=== PATIENT | female | born 1970 | race Caucasian/White ===

== ENCOUNTER 2019-02-02 06:15 | Inpatient (IN) ==
--- NOTE | 2019-01-18 16:30 | PAT Medication Instructions ---
Medication Instructions Date of Service January 18, 2019 Home Medications amitriptyline 100 mg PO HS aspirin 81 mg PO QAM baclofen 10 mg PO BID buspirone 10 mg PO TID diclofenac sodium 75 mg PO QAM folic acid 0.8 mg PO QAM gabapentin 100 mg PO TID levothyroxine 50 mcg PO QAM qabqjzletrpa-don-wurw-FA-vit K 1 tab-cap PO QAM omeprazole 40 mg PO BID venlafaxine [Effexor XR] 150 mg PO QAM ASK your surgeon for instructions aspirin 81 mg PO QAM diclofenac sodium 75 mg PO QAM DO NOT take the morning of surgery baclofen 10 mg PO BID folic acid 0.8 mg PO QAM fmcptxflrhzr-faj-iwov-FA-vit K 1 tab-cap PO QAM Take morning of surgery With a small sip of water, OTHERWISE NOTHING TO EAT OR DRINK AFTER MIDNIGHT: buspirone 10 mg PO TID gabapentin 100 mg PO TID levothyroxine 50 mcg PO QAM omeprazole 40 mg PO BID venlafaxine [Effexor XR] 150 mg PO QAM Take evening before surgery amitriptyline 100 mg PO HS baclofen 10 mg PO BID buspirone 10 mg PO TID gabapentin 100 mg PO TID omeprazole 40 mg PO BID Other Notes If you have any questions please call us at [phone] or [phone] or [phone] or [phone]
--- NOTE | 2019-01-19 10:44 | Anesthesiology Consultation ---
Date of Service January 19, 2019 Assessment & Plan (1) Encounter for pre-operative examination: - Neuro: 01/06/19: Hx empty sella syndrome/headaches. "MRI of the pituitary was o.k. There was no tumor." Prescribed neurontin for neuropathy. Chart Review Chart Review: Acceptable Risk for Surgery and Patient seen in Pre Admission Testing Teaching & Discussion Pre-Anesthesia Teaching/Discussion Notes: Instructed NPO after midnight before surgery,except medications with 15 cc of water. Medication instructions provided according to the PAT guidelines. History Surgery Operation Date: 02/02/19 07:30 Proposed Procedures p Left Laparoscopic Robotic Assisted Partial Nephrectomy - Grayson Villela MD Height/Weight Height: 5 ft 2 in Weight: 106 kg Allergies Allergy/AdvReac Type Severity Reaction Status Date / Time Penicillins Allergy Unknown Rash Verified 01/13/19 08:52 Medications Home Medications Medication Instructions Recorded Confirmed Last Taken amitriptyline 100 mg PO HS 01/13/19 01/13/19 Unknown aspirin 81 mg PO QAM 01/13/19 01/13/19 Unknown baclofen 10 mg PO BID 01/13/19 01/13/19 Unknown buspirone 10 mg PO TID 01/13/19 01/13/19 Unknown diclofenac sodium 75 mg PO QAM 01/13/19 01/13/19 Unknown folic acid 0.8 mg PO QAM 01/13/19 01/13/19 Unknown gabapentin 100 mg PO TID 01/13/19 01/13/19 Unknown levothyroxine 50 mcg PO QAM 01/13/19 01/13/19 Unknown cafphnowcrgl-bsq-sglu-FA-vit K 1 tab-cap PO QAM 01/13/19 01/13/19 Unknown [Multi For Her] omeprazole 40 mg PO BID 01/13/19 01/13/19 Unknown venlafaxine [Effexor XR] 150 mg PO QAM 01/13/19 01/13/19 Unknown Past Medical History Medical History Anxiety Cancer RENAL CELL - CURRENT ISSUE Chronic headaches HX EMPTY SELLA SYNDROME; FOLLOWS WITH NEURO Depression GERD (gastroesophageal reflux disease) OCCASIONAL Hypertension Hypothyroidism IBS (irritable bowel syndrome) Morbid obesity Neuropathy LOWER EXTREMITIES Osteoarthritis Pre-diabetes Sleeping difficulties POST-OP HYSTER, PATIENT STATES A NURSE TOLD HER SHE HAD APNEIC EVENTS DURING SLEEPING; NO SLEEP STUDY Exercise / Class Metabolic Activity II 4-5 Yardwork/Stairs/Walk up hill Past Family History Family History Father Family history of diabetes mellitus Past Surgical History Surgical History History of colonoscopy History of hysterectomy Hx of foot surgery B/L TARSAL TUNNEL Past Anesthesia History No Hx of Anesthesia Complications and No Family Hx of Anesthesia Complications History of PONV No Hx of PONV and No Hx of Motion Sickness Social History Smoking Status: Former smoker Do You Dip or Chew Tobacco: No Smoking End Date: QUIT 30 YEARS AGO Hx Alcohol Use: No Hx Substance Use: No Review of Systems Occasional reflux. Patient denies chest pain, shortness of breath, dyspnea on exertion, cough, wheezing, palpitations. Physical Exam Vital Signs VITALS BP 117/85 P 85 TEMP 98.9 SP02 96%RA RESP 18 PHYSICAL Full neck and c-spine range of motion. Full TMJ range of motion. TMD 4 finger breaths Mallampati Score 2 Dentition: missing side, loose lower front tooth per patient* Lungs: clear throughout to auscultation Cardiac: regular rate and rhythm, no murmurs noted Spine: normal Carotid arteries: negative bruit Extremities: no edema Short neck Testing Electrocardiogram Date: 01/19/19 Findings: + NSR @ (74) Chest X-Ray Date: 01/19/19 Findings: + NAD Stress Test Date: 01/19/18 Type: exercise "Normal" exercise ECHO/stress EKG at 7.0 METS. 89% MPHR. Occasional PAC's. LVEF 63%. Mild TR. Laboratory Results 01/19/19 10:55 01/19/19 10:55 Blood Type O Positive 01/19/19 10:55 Antibody Screen NEGATIVE 01/19/19 10:55 Urine Color Yellow 01/19/19 10:55 Urine Appearance Clear (Clear) 01/19/19 10:55 Urine pH 5.0 (4.5-7.5) 01/19/19 10:55 Ur Specific [place] 1.022 (1.000-1.030) 01/19/19 10:55 Urine Protein Negative (Negative) 01/19/19 10:55 Urine Glucose (UA) Negative (Negative) 01/19/19 10:55 Urine Ketones Negative (Negative) 01/19/19 10:55 Urine Nitrite Negative (Negative) 01/19/19 10:55 Ur Leukocyte Esterase Negative (Negative) 01/19/19 10:55
--- NOTE | 2019-01-19 11:20 | XRay Report ---
XR chest Pre-admission PA/Lat CLINICAL HISTORY: Preoperative chest COMPARISON STUDY: No previous studies for comparison. FINDINGS: The cardiac and mediastinal contours are normal. There is no evidence of focal pulmonary co nsolidation. There is no evidence of failure. No pleural effusions are visualized.[ IMPRESSION: No active disease in the chest. Electronically signed by: Stevan Lopez M.D. 01/19/2019 11:19 AM
[2019-01-19 13:29] LABS: Appearance Urine Clear (Clear); Bilirubin Urine Negative (Negative); Blood Urine Negative (Negative); Color Urine Yellow; Glucose Urine UA Negative (Negative); Ketones Urine Negative (Negative); Leukocyte Esterase Urine Negative (Negative); Nitrite Urine Negative (Negative); Protein Urine Negative (Negative); Specific Gravity Urine 1.022 (1.000-1.030); Urobilinogen Urine Negative (Negative)
[2019-01-19 13:30] LABS: BUN Creatinine Ratio 19.7 (10-20); Calcium 8.9 mg/dl (8.5-10.1); Creatinine Clr Calc Pharmacy 81.9 ml/min; Est GFR (African American) 81.5; Est GFR (Non-African American) 70.3; Potassium 4.5 mmol/L (3.5-5.1)
[2019-01-19 14:16] LABS: Basophils % (auto) 0.3 %; Eosinophils % (auto) 1.6 %; Hemoglobin 14.5 g/dL (12.0-16.0); Immature Granulocytes % (auto) 0.3 %; Lymphocytes # (auto) 1.97 K/uL (1.2-3.4); Lymphocytes % (auto) 32.2 %; Mean Corpuscular Hgb Conc 33.7 g/dL (32-36); Mean Corpuscular Volume 90.3 fL (80-100); Mean Platelet Volume 10.7 fL (7.4-10.4); Monocytes % (auto) 9.5 %; Neutrophils # (auto) 3.42 K/uL (1.4-6.5); Neutrophils % (auto) 56.1 %; Platelet Count 237 K/uL (130-400); RDW Coefficient of Variation 12.9 % (11.5-14.5); RDW Standard Deviation 42.5 fL (36.4-46.3); Red Blood Count 4.76 M/uL (4.2-5.4); White Blood Count 6.11 K/uL (4.8-10.8)
[2019-01-19 14:17] LABS: Basophils # (auto) 0.02 K/uL (0-0.2); Immature Granulocytes # (auto) 0.02 K/uL (0.00-0.02); Monocytes # (auto) 0.58 K/uL (0.11-0.59)
[~2019-02-02 06:15] MED LIST: CEFAZOLIN 2000MG 2,000 MG/15 ML SYR IV SCH; LR 15ML/HR IV SCH
[2019-02-02] MEDS ORDERED: BUPIVACAINE 0.5 % 5 MG/1 ML MPF 30ML VIAL ONE (06:59)
[2019-02-02] MEDS ORDERED: GELATIN SPONGE SZ 100 ONE (06:59)
[2019-02-02] MEDS ORDERED: MANNITOL 25% 12.5 GM/50 ML VIAL IV ONE ×2 (06:59→07:16)
[2019-02-02] MEDS ORDERED: LIDOCAINE HCL 2% 2 ML VIAL/AMP(20MG/ML) INFIL ONE (07:09)
[2019-02-02] MEDS ORDERED: ROCURONIUM BROMIDE 10 MG/ML 5 ML VIAL ONE ×2 (07:09→09:22)
[2019-02-02] MEDS ORDERED: MIDAZOLAM HCL 1 MG/ML 2ML VIAL ONE (07:09)
[2019-02-02] MEDS ORDERED: PROPOFOL IV EMULSION 10 MG/ML 20 ML VIAL IV ONE (07:09)
[2019-02-02] MEDS ORDERED: fentaNYL citrate 100 MCG/2 ML VIAL ONE ×3 (07:10→09:22)
[2019-02-02] MEDS ORDERED: ACETAMINOPHEN 1000 MG/100 ML IV IV ONE (07:16)
[2019-02-02] MEDS ORDERED: fentaNYL citrate 100 MCG/2 ML VIAL IV PRN (07:20)
[2019-02-02] MEDS ORDERED: ONDANSETRON INJ 2 MG/ML 2 ML VIAL IV PRN ×2 (07:20→12:32)
[2019-02-02] MEDS ORDERED: DEXAMETHASONE SOD INJ 4 MG/ML VIAL IV PRN (07:20)
[2019-02-02] MEDS ORDERED: HYDROmorphone INJ 2 MG/ML SYR/VIAL IV PRN (07:20)
[2019-02-02] MEDS ORDERED: ATROPINE SULFATE 0.1 MG/ML 10ML SYR IV PRN (07:20)
[2019-02-02] MEDS ORDERED: ePHEDrine sulfate 50 MG/ML AMP IV PRN (07:20)
--- NOTE | 2019-02-02 07:20 | History & Physical Bridge Note ---
Date of Service February 02, 2019 History & Physical Bridge Note I have examined the patient, reviewed the History & Physical and in the interval since the performance of the History & Physical I have noted the following changes of clinical significance: no changes noted
[2019-02-02] MEDS ORDERED: CLINDAMYCIN 600 MG/54 ML D5W IV ONE (07:24)
[2019-02-02] MEDS ORDERED: CLINDAMYCIN 600 MG/54 ML BAG IV SCH (07:45)
[2019-02-02] MEDS ORDERED: HYDROmorphone INJ 2 MG/ML SYR/VIAL ONE (08:46)
[2019-02-02] MEDS ORDERED: ONDANSETRON INJ 2 MG/ML 2 ML VIAL ONE ×2 (09:22→11:11)
[2019-02-02] MEDS ORDERED: DEXAMETHASONE SOD INJ 4 MG/ML VIAL ONE (09:22)
[2019-02-02] MEDS ORDERED: PHENYLEPHRINE 100MCG/ML 5ML SYR ONE (09:22)
[2019-02-02] MEDS ORDERED: TISSEEL FIBRIN SEALANT 10ML TOP ONE (09:30)
[2019-02-02] MEDS ORDERED: SURGICEL ABSORB HEMOSTAT 2IN X 14IN TOP ONE (09:30)
[2019-02-02] MEDS ORDERED: GLYCOPYRROLATE 0.2 MG/ML VIAL ONE (10:24)
[2019-02-02] MEDS ORDERED: NEOSTIGMINE METHYLSULFATE 5 MG/5 ML SYR ONE (10:24)
[2019-02-02] MEDS ORDERED: MANNITOL 25% 12.5 GM/50 ML VIAL IV STA (10:25)
--- NOTE | 2019-02-02 10:56 | Post Operative Brief Note ---
Immediate Post Op Note v1 Date of Surgery February 02, 2019 Pre & Post Diagnosis Operation Date: 02/02/19 07:30 Pre-Op Diagnosis: Left Renal Mass Post-Op Diagnosis: Left Renal Mass Procedure Operation Date: 02/02/19 07:30 Actual Procedures p Robotic Assisted Left Laparoscopic Partial Nephrectomy(Left) - Grayson Villela MD Surgeon Rasta Villela MD Hoop Punch Operator Helper Jorge Grover MD; LETICIA Newby Estimated Blood Loss 50 Findings Consistent with Post-Op Diagnosis Drains Alexis Catheter and Jose-Figueroa Drain
[2019-02-02 11:19] LABS: Basophils # (auto) 0.03 K/uL (0-0.2); Basophils % (auto) 0.3 %; Eosinophils # (auto) 0.05 K/uL (0-0.5); Eosinophils % (auto) 0.5 %; Hematocrit (blood only) 42.7 % (37-47); Hemoglobin 14.2 g/dL (12.0-16.0); Immature Granulocytes # (auto) 0.03 K/uL (0.00-0.02); Immature Granulocytes % (auto) 0.3 %; Lymphocytes # (auto) 2.04 K/uL (1.2-3.4); Mean Corpuscular Volume 91.6 fL (80-100); Mean Platelet Volume 9.8 fL (7.4-10.4); Monocytes # (auto) 0.24 K/uL (0.11-0.59); Monocytes % (auto) 2.5 %; Neutrophils # (auto) 7.33 K/uL (1.4-6.5); Neutrophils % (auto) 75.4 %; Platelet Count 231 K/uL (130-400); RDW Coefficient of Variation 12.9 % (11.5-14.5); Red Blood Count 4.66 M/uL (4.2-5.4); White Blood Count 9.72 K/uL (4.8-10.8)
[2019-02-02 11:38] LABS: BUN Creatinine Ratio 12.4 (10-20); Calcium 7.9 mg/dl (8.5-10.1); Creatinine Clr Calc Pharmacy 80.9 ml/min; Est GFR (African American) 79.5; Est GFR (Non-African American) 68.6; Potassium 4.3 mmol/L (3.5-5.1)
[2019-02-02 11:41] LABS: Mean Corpuscular Hgb Conc 33.3 g/dL (32-36)
--- NOTE | 2019-02-02 11:59 | Anesthesiology Progress Note ---
Date of Service February 02, 2019 Anesthesia Post Procedure Vital Signs Vital Signs: Temp Pulse Pulse Pulse Resp BP BP 02/02/19 11:40 98 H 14 02/02/19 11:36 36.4 C L 91 H 15 108/76 02/02/19 11:35 96 H 14 02/02/19 11:30 92 H 14 126/88 02/02/19 11:25 100 H 12 110/80 02/02/19 11:23 98 H 14 106/86 02/02/19 11:21 98 H 14 02/02/19 11:20 92 H 15 02/02/19 11:16 94 H 13 130/78 02/02/19 11:15 99 H 12 02/02/19 11:11 104 H 16 120/88 02/02/19 11:10 96 H 14 02/02/19 11:05 95 H 18 02/02/19 11:00 92 H 15 134/89 02/02/19 10:56 93 H 14 105/80 02/02/19 10:55 92 H 16 02/02/19 10:52 36.6 C 94 H 94 H 12 100/79 100/79 02/02/19 06:51 37.2 C 84 20 126/87 Pulse Ox 02/02/19 11:40 100 02/02/19 11:36 98 02/02/19 11:35 99 02/02/19 11:30 100 02/02/19 11:25 02/02/19 11:23 95 02/02/19 11:21 95 02/02/19 11:20 94 02/02/19 11:16 93 02/02/19 11:15 95 02/02/19 11:11 95 02/02/19 11:10 97 02/02/19 11:05 96 02/02/19 11:00 98 02/02/19 10:56 97 02/02/19 10:55 97 02/02/19 10:52 97 02/02/19 06:51 98 Pain Intensity Bilateral Leg: Pain Intensity: 6 Left Abdomen: Pain Intensity: 4 Transfer of Care Handoff Completed per policy Notes Mental Status: alert / awake / arousable and participated in evaluation Patient Amnestic to Procedure: Yes Nausea / Vomiting: adequately controlled Pain: adequately controlled Airway Patency, RR, SpO2: stable & adequate BP & HR: stable & adequate Hydration State: stable & adequate Anesthetic Complications: no major complications apparent
--- NOTE | 2019-02-02 12:10 | Operative Report ---
Post Operative Report Pre & Post Diagnosis Operation Date: 02/02/19 07:30 Pre-Op Diagnosis: Left Renal Mass Post-Op Diagnosis: Left Renal Mass Procedure Operation Date: 02/02/19 07:30 Actual Procedures p Robotic Assisted Left Laparoscopic Partial Nephrectomy(Left) - Grayson Villela MD Surgeon Rasta Villela MD Still Runner Jorge Grover MD; LETICIA Newby Estimated Blood Loss 50 Findings See Below (8 min warm ischemia time) Specimens left renal mass Description of Procedure Patient was identified in the preoperative holding area, appropriate informed consents reviewed and completed and the patient was transported to the operating suite. Upon arrival she received appropriate preoperative antibiotics in the form of clindamycin. Adequate general anesthesia was achieved she was placed in a [id number] left side up lateral decubitus position with the bed flexed. Following sterile prep and drape I passed a Veress needle into the left upper quadrant and insufflated the abdomen to 15 mmHg. I then marked my anticipated incisions for standard robotic assisted laparoscopic left partial nephrectomy. I inserted a 12 mm Visiport with 10 mm 0 degree lens, and confirm that there is no evidence of varus trauma. I then inspected my other port locations before placing each sequentially under direct vision. Of note, she had some inflammation of the left colon with adhesions. I was able to sharply incised adhesions and mobilized the colon. I then incised the white line of Toldt and medialize the colon however [id number] exposing the underlying kidney with Gerota's fascia intact. At the inferior pole of the kidney identified the gonadal vein and created a window medial to the gonadal vein onto the psoas muscle. I elevated this as I continued to dissect off the anterior surface of the gonadal vein towards the inferior pole of the kidney and ultimately the inferior aspect of the renal vein. Unfortunately I encountered a small branch that started to bleed and I elected to clip the branch as well as the gonadal vein. After can obtain an control I created a new window just lateral to the gonadal vein preserving the ureter with the remaining aspects of Gerota's fascia. I utilize this window to elevate the kidney further and put the hilum on stretch. At this point I encountered the lower aspect of the renal vein and I cleared first anterior surface, identifying the adrenal vein. I then dissected an area just lateral to the gonadal and adrenal inferior and superior to the vein as well as grading a posterior plane to completely surround the vein. A single artery was identified immediately posterior to the vein and this was skeletonized. At that time I turned my attention away from the renal hilum and moved towards the kidney itself. I incised Gerota's fascia in the midportion of the anterior surface of the kidney. I got onto the capsule of the kidney and the other skeletonized the capsule until I encountered a visible defect and protrusion consistent with the mass seen on prior imaging. After circumferentially exposing capsule around the perimeter of this mass, I performed a laparoscopic ultrasonographic evaluation confirming that this was in fact the mass. I marked my plans incision site on the renal capsule and preplaced to V lock sutures into the abdomen as well as a single Vicryl suture. We then administered 12.5 g of mannitol before clamping the renal artery with a short straight followed by a short curved bulldog clamp. I placed a short straight bulldog clamp across the renal vein as well before turning towards excision of the mass. There was excellent clamping, no active bleeding during the resection, and I was able to sharply incise the remaining aspects of the capsule and remove the tumor en bloc without any visible violations. There was no intrusion upon major vasculature nor the renal collecting system. I was able to again reapproximation of the defect utilizing my previously placed V lock sutures and a sliding clip technique. A single suture was utilized to cross the defect 3 times before unclamping the kidney. Warm ischemia time was 8 minutes. There was good hemostasis after unclamping the kidney. I did place an additional single pass V lock suture to better reapproximate the capsule of the kidney. I then placed FloSeal across the defect and covered it with a small sheet of Surgicel. We draped Tisseel over the top to create a new pseudocapsule. I reapproximated Gerota's fascia utilizing the remaining aspect of the V lock suture. I then collected the specimen in an Endo Catch bag placed through the lowest assistant unit forester port. A Husam drain was guided through her right robotic arm and placed into the retro- peritoneal gutter. We then undocked the robot and I withdrew the specimen. I closed the fascia with a 0 Vicryl followed by reapproximation of Katheryn's fascia and the location of the 12 mm ports. All incisions were infiltrated with half percent Marcaine for closure with 4-0 Monocryl. The drain was sutured in place with a 2-0 nylon. Dermabond was placed across all incisions and the case concluded. There were no complications, patient tolerated the procedure extremely well. Jorge Grover assisted me throughout the case as did Verónica Walden. I attest to the content of the Intraoperative Record and any orders documented therein. Any exceptions are noted below.
[2019-02-02] MEDS ORDERED: MoRPHine SULFATE 2 MG/ML CARP IV PRN (12:32)
[2019-02-02] MEDS ORDERED: ACETAMINOPHEN W/CODEINE #3 1 TAB PO PRN (12:32)
[2019-02-02] MEDS ORDERED: BACLOFEN 10 MG TAB PO PRN (12:32)
[2019-02-02] MEDS: MoRPHine SULFATE 4 MG/ML 1 ML CARP\\VIAL IV PRN ×2 (12:50→23:45)
[2019-02-02 13:31] LABS: Partial Thromboplastin Ratio 0.9; Partial Thromboplastin Time 24.9 Seconds (21.0-31.0); Prothrombin Time 10.7 Seconds (9.0-12.0)
[2019-02-02] MEDS ORDERED: BUSPIRONE HCL 10 MG TAB PO SCH (14:00)
[2019-02-02] MEDS: LACTATED RINGER'S 1,000 ML IV SCH ×2 (14:06→22:32)
[2019-02-02] MEDS: CLINDAMYCIN 600 MG in DEXTROSE 5% 50 ML IV SCH ×2 (14:07→22:31)
[2019-02-02] MEDS: GABAPENTIN 100 MG CAP PO SCH ×2 (14:07→20:27)
[2019-02-02] MEDS: LEVOTHYROXINE SODIUM 50 MCG TABLET PO SCH (14:07)
[2019-02-02] MEDS: ACETAMINOPHEN W/CODEINE #3 1 TAB PO PRN (15:36)
[2019-02-02] MEDS: AMITRIPTYLINE HCL 100 MG TAB PO SCH (20:27)
[2019-02-02] MEDS: PANTOprazole 40 MG TAB PO SCH (20:28)
[2019-02-02] MEDS: HEPARIN SOD 5,000 UNIT/0.5 ML VIAL SQ SCH (20:35)
[2019-02-03] MEDS: LACTATED RINGER'S 1,000 ML IV SCH ×3 (05:35→20:20)
[2019-02-03] MEDS: ACETAMINOPHEN W/CODEINE #3 1 TAB PO PRN ×2 (05:35→15:07)
[2019-02-03] MEDS: LEVOTHYROXINE SODIUM 50 MCG TABLET PO SCH (05:35)
[2019-02-03 07:31] LABS: Basophils # (auto) 0.01 K/uL (0-0.2); Basophils % (auto) 0.1 %; Eosinophils # (auto) 0.01 K/uL (0-0.5); Eosinophils % (auto) 0.1 %; Hematocrit (blood only) 36.8 % (37-47); Hemoglobin 12.1 g/dL (12.0-16.0); Immature Granulocytes # (auto) 0.03 K/uL (0.00-0.02); Immature Granulocytes % (auto) 0.3 %; Lymphocytes # (auto) 1.56 K/uL (1.2-3.4); Lymphocytes % (auto) 17.3 %; Mean Corpuscular Hgb Conc 32.9 g/dL (32-36); Mean Corpuscular Volume 92.2 fL (80-100); Mean Platelet Volume 9.9 fL (7.4-10.4); Monocytes # (auto) 1.22 K/uL (0.11-0.59); Monocytes % (auto) 13.6 %; Neutrophils # (auto) 6.17 K/uL (1.4-6.5); Neutrophils % (auto) 68.6 %; Platelet Count 216 K/uL (130-400); RDW Coefficient of Variation 12.9 % (11.5-14.5); RDW Standard Deviation 43.7 fL (36.4-46.3); Red Blood Count 3.99 M/uL (4.2-5.4)
--- NOTE | 2019-02-03 07:54 | Urology Progress Note ---
Date of Service February 03, 2019 Assessment & Plan (1) Renal mass: pod #1 s/p L robo part nephrectomy - sanchez out - advance diet - ambulate - leave KATRINA for now Subjective progressing appropriately - out of bed - hungry - modest pain - clear urine, low KATRINA output Physical Exam Physical Exam: AFVSS NAD incisions appropriate Katrina serosang urine clear Results & Data Vital Signs (Past 12 Hours) Vital Signs Temp Pulse Pulse Resp BP Pulse Ox 02/03/19 02:51 36.9 C 90 17 95/65 L 95 02/02/19 23:47 87 100/64 02/02/19 22:51 37.0 C 90 16 88/63 L 93
[2019-02-03] MEDS: PANTOprazole 40 MG TAB PO SCH ×2 (07:57→20:22)
[2019-02-03] MEDS: CEROVITE ADV FORMULA TAB PO SCH (07:57)
[2019-02-03] MEDS: VENLAFAXINE HCL XR 150 MG CAPXR PO SCH (07:57)
[2019-02-03] MEDS: GABAPENTIN 100 MG CAP PO SCH ×3 (07:58→20:21)
[2019-02-03 08:14] LABS: BUN Creatinine Ratio 9.8 (10-20); Calcium 8.1 mg/dl (8.5-10.1); Creatinine Clr Calc Pharmacy 80.9 ml/min; Est GFR (African American) 79.5; Est GFR (Non-African American) 68.6
[2019-02-03] MEDS: HEPARIN SOD 5,000 UNIT/0.5 ML VIAL SQ SCH ×2 (08:46→20:24)
--- NOTE | 2019-02-03 08:59 | Anesthesiology Progress Note ---
Date of Service February 03, 2019 Anesthesia Post Procedure Vital Signs Vital Signs: Temp Pulse Pulse Pulse Resp BP BP 02/03/19 07:30 37.0 C 89 18 114/74 02/03/19 02:51 36.9 C 90 17 95/65 L 02/02/19 23:47 87 100/64 02/02/19 22:51 37.0 C 90 16 88/63 L 02/02/19 18:49 37.1 C 104 H 20 127/79 02/02/19 15:01 36.9 C 88 19 02/02/19 14:06 37.1 C 88 16 02/02/19 12:57 37.2 C 86 16 02/02/19 12:26 37 C 86 15 02/02/19 12:00 37 C 99 H 16 02/02/19 11:40 98 H 14 02/02/19 11:36 36.4 C L 91 H 15 108/76 02/02/19 11:35 96 H 14 02/02/19 11:30 92 H 14 126/88 02/02/19 11:25 100 H 12 110/80 02/02/19 11:23 98 H 14 106/86 02/02/19 11:21 98 H 14 02/02/19 11:20 92 H 15 02/02/19 11:16 94 H 13 130/78 02/02/19 11:15 99 H 12 02/02/19 11:11 104 H 16 120/88 02/02/19 11:10 96 H 14 02/02/19 11:05 95 H 18 02/02/19 11:00 92 H 15 134/89 02/02/19 10:56 93 H 14 105/80 02/02/19 10:55 92 H 16 02/02/19 10:52 36.6 C 94 H 94 H 12 100/79 BP Pulse Ox 02/03/19 07:30 97 02/03/19 02:51 95 02/02/19 23:47 02/02/19 22:51 93 02/02/19 18:49 97 02/02/19 15:01 107/71 95 02/02/19 14:06 112/74 97 02/02/19 12:57 108/74 97 02/02/19 12:26 109/70 97 02/02/19 12:00 123/82 96 02/02/19 11:40 100 02/02/19 11:36 98 02/02/19 11:35 99 02/02/19 11:30 100 02/02/19 11:25 02/02/19 11:23 95 02/02/19 11:21 95 02/02/19 11:20 94 02/02/19 11:16 93 02/02/19 11:15 95 02/02/19 11:11 95 02/02/19 11:10 97 02/02/19 11:05 96 02/02/19 11:00 98 02/02/19 10:56 97 02/02/19 10:55 97 02/02/19 10:52 100/79 97 Pain Intensity Bilateral Leg: Pain Intensity: 6 Left Abdomen: Pain Intensity: 10 Notes Mental Status: alert / awake / arousable and participated in evaluation Patient Amnestic to Procedure: Yes Nausea / Vomiting: adequately controlled Pain: adequately controlled Airway Patency, RR, SpO2: stable & adequate BP & HR: stable & adequate Hydration State: stable & adequate Anesthetic Complications: no major complications apparent and Pt Satisfied with anesthetic care
[2019-02-03] MEDS ORDERED: OXYCODONE/ACETAMINOPHEN 5mg/325mg TAB PO PRN (16:18)
[2019-02-03] MEDS: AMITRIPTYLINE HCL 100 MG TAB PO SCH (20:21)
[2019-02-03] MEDS: OXYCODONE HCL IR 5 MG TAB (IMMEDIATE RELEASE) PO PRN (21:26)
[2019-02-03] MEDS: MoRPHine SULFATE 4 MG/ML 1 ML CARP\\VIAL IV PRN (22:46)
[2019-02-04] MEDS: OXYCODONE HCL IR 5 MG TAB (IMMEDIATE RELEASE) PO PRN (01:36)
[2019-02-04] MEDS: LACTATED RINGER'S 1,000 ML IV SCH (02:53)
[2019-02-04] MEDS: LEVOTHYROXINE SODIUM 50 MCG TABLET PO SCH (05:38)
[2019-02-04 07:21] LABS: Basophils # (auto) 0.02 K/uL (0-0.2); Basophils % (auto) 0.2 %; Eosinophils # (auto) 0.06 K/uL (0-0.5); Eosinophils % (auto) 0.6 %; Hematocrit (blood only) 38.7 % (37-47); Immature Granulocytes # (auto) 0.04 K/uL (0.00-0.02); Immature Granulocytes % (auto) 0.4 %; Lymphocytes # (auto) 2.39 K/uL (1.2-3.4); Lymphocytes % (auto) 25.5 %; Mean Corpuscular Hgb Conc 33.6 g/dL (32-36); Mean Corpuscular Volume 91.3 fL (80-100); Mean Platelet Volume 10.4 fL (7.4-10.4); Monocytes # (auto) 1.01 K/uL (0.11-0.59); Monocytes % (auto) 10.8 %; Neutrophils # (auto) 5.85 K/uL (1.4-6.5); Neutrophils % (auto) 62.5 %; Platelet Count 257 K/uL (130-400); RDW Coefficient of Variation 12.9 % (11.5-14.5); RDW Standard Deviation 43.1 fL (36.4-46.3); Red Blood Count 4.24 M/uL (4.2-5.4); White Blood Count 9.37 K/uL (4.8-10.8)
[2019-02-04 07:56] LABS: BUN Creatinine Ratio 9.1 (10-20); Creatinine Clr Calc Pharmacy 89.2 ml/min; Est GFR (African American) 89.4; Est GFR (Non-African American) 77.2; Potassium 3.8 mmol/L (3.5-5.1)
[2019-02-04] MEDS: HEPARIN SOD 5,000 UNIT/0.5 ML VIAL SQ SCH (09:07)
[2019-02-04] MEDS: GABAPENTIN 100 MG CAP PO SCH (09:08)
[2019-02-04] MEDS: PANTOprazole 40 MG TAB PO SCH (09:08)
[2019-02-04] MEDS: VENLAFAXINE HCL XR 150 MG CAPXR PO SCH (09:08)
[2019-02-04] MEDS: CEROVITE ADV FORMULA TAB PO SCH (09:08)
--- NOTE | 2019-02-04 09:09 | Urology Progress Note ---
Date of Service February 04, 2019 Assessment & Plan (1) Renal mass: 48yo F POD #2 s/p L partial nephrectomy Doing well and progressing as expected. Okay to d/c IVFs. Ready for discharge whenever ride available. Expected clinical course and discharge instructions reviewed, Pt verbalizes understanding. Subjective 48yo F POD #1 s/p L partial nephrectomy. Uneventful evening, able to get some rest. Feeling much better this AM, pain controlled with oxycodone PO. Tolerating PO diet, denies n/v. Able to have BM yesterday. Voiding without difficulty, no hematuria or dysuria. labs reviewed - stable. Slightly tachycardic this AM but otherwise VSS. Review of Systems Review of Systems: All systems reviewed & are unremarkable except as noted in HPI & below Physical Exam Physical Exam: A&Ox3 RRR Abd soft, nontender abdominal incisions c/d/i MARCI site without any ozzing, well approximated. No LE edema Results & Data Vital Signs (Past 12 Hours) Vital Signs Temp Pulse Resp BP Pulse Ox 02/04/19 06:59 37.3 C 109 H 16 128/90 93 02/03/19 22:59 37.5 C 101 H 14 141/91 H 96 Laboratory Results Laboratory Results - last 48 hr 02/02/19 02/02/19 02/02/19 11:11 11:11 13:09 WBC 9.72 RBC 4.66 Hgb 14.2 Hct 42.7 MCV 91.6 MCH 30.5 MCHC 33.3 RDW Std Deviation 43.0 RDW Coeff of Eh 12.9 Plt Count 231 MPV 9.8 Immature Gran % (Auto) 0.3 Neut % (Auto) 75.4 Lymph % (Auto) 21.0 [place] % (Auto) 2.5 Eos % (Auto) 0.5 Baso % (Auto) 0.3 Immature Gran # (Auto) 0.03 H Neut # (Auto) 7.33 H Lymph # (Auto) 2.04 [place] # (Auto) 0.24 Eos # (Auto) 0.05 Baso # (Auto) 0.03 PT 10.7 INR 1.0 APTT 24.9 PTT Ratio 0.9 Sodium 135 L Potassium 4.3 Chloride 105 Carbon Dioxide 25 Anion Gap 5.0 BUN 12 Creatinine 0.97 Est Cr Clr Drug Dosing 80.9 Est GFR ( Amer) 79.5 Est GFR (Non-Af Amer) 68.6 BUN/Creatinine Ratio 12.4 Glucose 127 H Calcium 7.9 L Specimen Hemolysis 02/03/19 02/03/19 02/03/19 07:14 07:14 08:25 WBC 9.00 RBC 3.99 L Hgb 12.1 Hct 36.8 L MCV 92.2 MCH 30.3 MCHC 32.9 RDW Std Deviation 43.7 RDW Coeff of Eh 12.9 Plt Count 216 MPV 9.9 Immature Gran % (Auto) 0.3 Neut % (Auto) 68.6 Lymph % (Auto) 17.3 [place] % (Auto) 13.6 Eos % (Auto) 0.1 Baso % (Auto) 0.1 Immature Gran # (Auto) 0.03 H Neut # (Auto) 6.17 Lymph # (Auto) 1.56 [place] # (Auto) 1.22 H Eos # (Auto) 0.01 Baso # (Auto) 0.01 PT INR APTT PTT Ratio Sodium 139 Potassium 4.0 Chloride 107 Carbon Dioxide 27 Anion Gap 5.0 BUN 10 Creatinine 0.97 Est Cr Clr Drug Dosing 80.9 Est GFR ( Amer) 79.5 Est GFR (Non-Af Amer) 68.6 BUN/Creatinine Ratio 9.8 L Glucose 108 H Calcium 8.1 L Specimen Hemolysis Cancelled 02/04/19 02/04/19 06:29 06:29 WBC 9.37 RBC 4.24 Hgb 13.0 Hct 38.7 MCV 91.3 MCH 30.7 MCHC 33.6 RDW Std Deviation 43.1 RDW Coeff of Eh 12.9 Plt Count 257 MPV 10.4 Immature Gran % (Auto) 0.4 Neut % (Auto) 62.5 Lymph % (Auto) 25.5 [place] % (Auto) 10.8 Eos % (Auto) 0.6 Baso % (Auto) 0.2 Immature Gran # (Auto) 0.04 H Neut # (Auto) 5.85 Lymph # (Auto) 2.39 [place] # (Auto) 1.01 H Eos # (Auto) 0.06 Baso # (Auto) 0.02 PT INR APTT PTT Ratio Sodium 136 Potassium 3.8 Chloride 105 Carbon Dioxide 24 Anion Gap 7.0 BUN 8 Creatinine 0.88 Est Cr Clr Drug Dosing 89.2 Est GFR ( Amer) 89.4 Est GFR (Non-Af Amer) 77.2 BUN/Creatinine Ratio 9.1 L Glucose 113 H Calcium 8.0 L Specimen Hemolysis
--- NOTE | 2019-02-15 08:05 | Discharge Summary ---
Date of Service February 15, 2019 Admission HPI Per Admitting Provider admitted for robotic partial nephrectomy - details as dictated previously Principal Diagnosis renal cell carcinoma Discharge Data Allergies Allergy/AdvReac Type Severity Reaction Status Date / Time Penicillins Allergy Unknown Rash Verified 02/02/19 06:41 Procedures Performed Operation Date: 02/02/19 07:30 Actual Procedures p Robotic Assisted Left Laparoscopic Partial Nephrectomy(Left) - Grayson Villela MD Hospital Course (1) Renal cell carcinoma: admitted for robotic partial nephrectomy - details as dictated previously - in summary, she progressed extremely well - she was ambulatory on POD #1 - sanchez removed - drain removed on POD #2 - d/c home in stable condition Total Time Total Time Spent Total Time Spent (In Minutes): 15 Total Time Includes: Examination of the Patient, Discharge Planning and Medication Reconciliation Discharge Plan Discharge Items Patient Disposition: Home - Self-Care Reason For Visit: Left Renal Mass Discharge Diagnosis: Left Renal Mass Condition: Fair Discharge Goals: Improve function and Improve nutritional status Activity: Per 'Additional Instructions' section Activity Comment: Walking and stairs in your home are okay. Lifting: No more than 25 pounds Bathing: Keep incision dry Bathing Comment: Okay to shower tomorrow. No tub baths/swimming/hot tubs. Sexual Activity: Wait until after follow-up appointment Exercise/Sports: Rest today and Wait until after follow-up appointment Driving/Machine Use: Resume 1 day after discharge Driving/Machine Use Comment: Please do not drive while taking prescription pain medication. Non-emergency contact: Urologist Call non-emergency contact if: your pain is worsening, your pain is concerning for you, your temperature is above 101.5, your wound has increased redness, your wound has increased drainage and your wound pain has increased Follow-up/Referrals: Grayson Villela MD [Physician] - 02/15/19 10:45 am Ravinder Cota MD [Primary Care Provider] - Diet: Regular Addtl Provider Instructions: Please take all medications as prescribed and keep all follow-ups as scheduled. Please call our office at [phone] with any questions, concerns or need to reschedule appointments for any reason. We are happy to assist you. Okay to restart your baby aspirin on Friday (tomorrow). Hold diclofenac until end of next week (February 11). OKay to use tylenol or prescription pain control until then. Recovering at home: We recommend having someone with you for the first few days after surgery to help care for you. It is okay to shower tomorrow. Please avoid swimming, bathing or using hot tub until incisions are well healed. Avoid driving until you are not requiring pain medication any further. Walk at least a few times a day. Increase your distance, as you feel able. Stairs in your home are okay. Please avoid strenuous or sexual activity until y our follow-up. We recommend using stool softener (i.e. Colace) to prevent constipation and straining, especially the first two weeks post operatively. Call [facility] at [phone] if you experience: Chest pain or trouble breathing (call 154 or go to the hospital). Fever of 101F or higher Symptoms of infection at incision site, including redness or swelling, warmth, or bad-smelling drainage Pain that is not controlled with medicines Prescriptions: New oxycodone-acetaminophen [Percocet] 5-325 mg tablet 1 tab PO TID PRN (Reason: pain) Qty: 14 RF: 0 docusate sodium [Colace] 100 mg capsule 100 mg PO BID Qty: 60 RF: 0 Continued venlafaxine [Effexor XR] 150 mg Capsule,Extended Release 24hr 150 mg PO QAM RF: 0 baclofen 10 mg Tablet 10 mg PO BID RF: 0 levothyroxine 50 mcg Tablet 50 mcg PO QAM RF: 0 buspirone 10 mg Tablet 10 mg PO TID RF: 0 gabapentin 100 mg Capsule 100 mg PO TID RF: 0 amitriptyline 100 mg Tablet 100 mg PO HS RF: 0 folic acid 800 mcg Tablet 0.8 mg PO QAM RF: 0 Multi For Her 18 mg iron-600 mcg-40 mcg Capsule 1 tab-cap PO QAM RF: 0 omeprazole 40 mg Capsule,Delayed Release(Dr/Ec) 40 mg PO BID RF: 0 Discontinued omeprazole 40 mg Capsule,Delayed Release(Dr/Ec) 40 mg PO BID RF: 0 aspirin 81 mg Tablet,Delayed Release (Dr/Ec) 81 mg PO QAM RF: 0 diclofenac sodium 75 mg Tablet,Delayed Release (Dr/Ec) 75 mg PO QAM RF: 0 Stand-Alone Forms: [facility] [employer], Opio[facility] [employer]/Other Patient Handouts: Disease Kidney Eat Less Sodium, Disease Kidney Avoid High Sodium Discharge Orders: Discharge Order (Routine); Ordered 02/04/19 Ordered By: Verónica Walden Admission Data Admit Date/Time: 02/02/19 10:48 Attending Provider: Grayson Villela Admit Provider: Grayson Villela Primary Care Provider: Ravinder Cota Service: Surgical Services Other Interventions: Discharge Summary Assessment (RN) Last Done: 02/04/19 09:43 Pending Studies at Discharge: Yes (pathology report) DC Date/Time DO NOT enter until pt leaves facility: 02/04/19 11:09
== END 2019-02-04 11:09 | disposition home or self-care (01) | DRG 687 ==
LOC: ASU 06:15 → 3N 10:48